=== PATIENT | female | born 1995 | race Caucasian/White ===

== ENCOUNTER 2017-04-13 19:44 | Emergency (ER) | payer OTHER ==
[2017-04-13 19:51] VITALS: RESP 18
[2017-04-13] MEDS ORDERED: ALBUTEROL NEBULIZED 2.5 MG/3 ML INHALATION STA (20:04)
--- NOTE | 2017-04-13 20:09 | ED ---
Chest Pain HPI - General Chief Complaint: Chest Pain Stated Complaint: Chest Pain Time Seen by Provider: 04/13/17 19:47 Source: patient Mode of arrival: EMS - History of Present Illness Initial Comments: This patient is a 22-year-old woman who presents with complaint of 3-4 days now of chest tightness. She indicates it is across the entire chest. She states that she had first noticed it at work. She works at [employer] and again it came on 3-4 days ago. She states that it is constant, mild to moderate, and she has not noted any worsening or relieving factors. She has had a little bit of shortness of breath and she states she is coughing with some light green sputum. Patient denies any anginal equivalent, no diaphoresis, nausea or vomiting, palpitations, lightheadedness or syncope. The patient had gone to medic expess about this was given aspirin and sent here for further evaluation. MD Complaint: chest pain -: days(s) Onset: during rest Pain Location: left chest, right chest Pain Radiation: none Severity: mild Quality: tightness - Related Data Home Medications Medication Instructions Recorded Confirmed [id number] [id number] 2 tab PO BID PRN 04/13/17 04/13/17 [Excedrin] Ibuprofen [Motrin] 800 mg PO DAILY PRN 04/13/17 04/13/17 diphenhydrAMINE HCL [Benadryl] 100 mg PO HS PRN 04/13/17 04/13/17 Previous Rx's Medication Instructions Recorded Albuterol Inhaler [Ventolin Hfa 1 - 2 puff INHALATION Q6HR PRN #1 04/13/17 Inhaler] inhaler Allergies Allergy/AdvReac Type Severity Reaction Status Date / Time No Known Allergies Allergy Verified 04/13/17 20:11 Review of Systems ROS Statement: Those systems with pertinent positive or pertinent negative responses have been documented in the HPI. ROS Other: All systems not noted in ROS Statement are negative. Constitutional: Reports: fever. Denies: chills Respiratory: Reports: as per HPI, cough, dyspnea. Denies: wheezes, hemoptysis Cardiovascular: Reports: as per HPI, chest pain. Denies: palpitations, dyspnea on exertion, orthopnea, edema, syncope Gastrointestinal: Denies: abdominal pain, nausea, vomiting, melena, hematochezia Genitourinary: Denies: dysuria, hematuria Musculoskeletal: Denies: back pain Skin: Denies: rash Neurological: Denies: headache, weakness, numbness EKG Findings - EKG Comments: EKG Findings:: The 12-lead EKG shows anus rhythm with what appear to be relatively frequent reentrant ventricular beats. Rate is 83 bpm. - EKG Results: EKG: interpreted by ALEXXD, sinus rhythm (Rate 83 bpm), normal axis, normal QRS, normal ST/T Past Medical History Past Medical History: No Reported History History of Any Multi-Drug Resistant Organisms: None Reported Past Surgical History: No Surgical Hx Reported Past Psychological History: Anxiety Smoking Status: Current every day smoker Past Alcohol Use History: None Reported Past Drug Use History: None Reported General Exam General appearance: alert, in no apparent distress Head exam: Present: atraumatic, normocephalic Eye exam: Present: normal appearance. Absent: scleral icterus, conjunctival injection ENT exam: Present: normal oropharynx Neck exam: Present: normal inspection, full ROM Respiratory exam: Present: normal lung sounds bilaterally. Absent: respiratory distress, wheezes, rales, rhonchi, stridor Cardiovascular Exam: Present: regular rate, normal rhythm, normal heart sounds. Absent: systolic murmur, diastolic murmur, rubs, gallop GI/Abdominal exam: Present: soft, normal bowel sounds. Absent: distended, tenderness, guarding, rebound, mass Extremities exam: Present: normal inspection, normal capillary refill. Absent: pedal edema, calf tenderness Back exam: Present: normal inspection. Absent: CVA tenderness (R), CVA tenderness (L) Neurological exam: Present: alert Psychiatric exam: Present: anxious Skin exam: Present: warm, dry, intact, normal color. Absent: rash Course Vital Signs 04/13/17 04/13/17 04/13/17 19:45 20:59 21:07 Temperature 99.0 F Pulse Rate 43 L 90 90 Respiratory 18 Rate Blood Pressure 123/67 O2 Sat by Pulse 99 Oximetry Disposition Clinical Impression: Chest pain, Dehydration Disposition: HOME SELF-CARE Condition: Good Instructions: Chest Pain (ED) Prescriptions: Albuterol Inhaler [Ventolin Hfa Inhaler] 1 - 2 puff INHALATION Q6HR PRN #1 inhaler PRN Reason: Wheezing Referrals: None,Stated [Primary Care Provider] - 1-2 days Reggie Traylor MD [STAFF PHYSICIAN] - 1-2 days
[2017-04-13 20:15] LABS: Basophils # (A) 0.1 k/uL (0-0.2); Basophils % (A) 1 %; CH 32.4; CHCM 35.1; Eosinophils # (A) 0.2 k/uL (0-0.7); Eosinophils % (A) 3 %; HCT 41.9 % (34.0-46.0); HDW 2.42; HGB 14.7 gm/dL (11.4-16.0); Luc # (Auto) 0.16; Luc % (Auto) 2; Lymphocytes # (A) 2.1 k/uL (1.0-4.8); Lymphocytes % (A) 24 %; MCH 32.3 pg (25.0-35.0); MCV 92.4 fL (80.0-100.0); Mean Platelet Volume 8.4; Monocytes # (A) 0.5 k/uL (0-1.0); Monocytes % (A) 5 %; Neutrophils # (A) 5.9 k/uL (1.3-7.7); Neutrophils % (A) 66 %; RBC 4.54 m/uL (3.80-5.40); RDW 12.2 % (11.5-15.5); WBC 8.9 k/uL (3.8-10.6)
[2017-04-13 20:24] LABS: ALT 21 U/L (9-52); AST 16 U/L (14-36); Alkaline Phosphatase 77 U/L (38-126); Anion Gap 9 mmol/L; Blood Urea Nitrogen 22 mg/dL (7-17); Carbon Dioxide 24 mmol/L (22-30); Chloride 105 mmol/L (98-107); Glucose 92 mg/dL (74-99); Non-African American GFR(MDRD) >60 (>60 ml/min/1.73 sqM); Potassium 4.3 mmol/L (3.5-5.1); Sodium 138 mmol/L (137-145); Total Bilirubin 0.7 mg/dL (0.2-1.3); Total Protein 7.6 g/dL (6.3-8.2)
[2017-04-13 20:33] LABS: INR 1.1 (<1.1); Partial Thromboplastin Time 25.1 sec (22.0-30.0); Prothrombin Time 10.7 sec (9.0-12.0)
--- NOTE | 2017-04-13 20:42 | XR ---
EXAMINATION TYPE: XR chest 2V DATE OF EXAM: 04/13/2017 8:37 PM COMPARISON: NONE HISTORY: Chest pain TECHNIQUE: Frontal and lateral views of the chest are obtained. FINDINGS: Heart and mediastinum are normal. Lungs are clear. Diaphragm is normal. Bony thorax is int act. There are chest leads. IMPRESSION: Normal chest.
[2017-04-13] MEDS ORDERED: KETOROLAC 30 MG/ML 1 ML VIAL IVP STA (21:19)
[2017-04-13 21:50] LABS: Appearance,Urine Cloudy (Clear); Bilirubin,Urine Negative (Negative); Glucose,Urine (UA) Negative (Negative); Ketones,Urine Negative (Negative); Leukocyte Esterase,Urine Large (Negative); Nitrite,Urine Negative (Negative); Particle Count 18684; Protein,Urine Trace (Negative); Specific Gravity,Urine 1.017 (1.001-1.035); Squamous Epithelial Cell,Urine 19 /hpf (0-4); UA Billing (MACRO vs. MICRO) MICRO; Urobilinogen,Urine <2.0 mg/dL (<2.0); WBC,Urine 11 /hpf (0-5)
[2017-04-13] MEDS ORDERED: SODIUM CHLORIDE 0.9% 1,000 ML IV ONE (22:08)
[2017-04-13 22:56] VITALS: BP 157/96; PULSE 78; TEMP 98.8
== END 2017-04-13 22:53 | disposition home or self-care (01) ==
LOC: EC 19:44
DX: R07.89 Other chest pain (principal); E86.0 Dehydration; R06.02 Shortness of breath; R05 Cough; F17.200 Nicotine dependence, unspecified, uncomplicated
CPT/HCPCS: 36415; 94640; 93005; 85379; 80053; 83735; 84484; 85025; 85610; 85730; 81001; 81025; 71020; 99285; 96374; 96361; J1885

== ENCOUNTER → 2018-01-11 | Outpatient (CLI) | payer OTHER ==
[2018-01-11 18:32] LABS: HGB 12.5 gm/dL (11.4-16.0); MCHC 32.8 g/dL (31.0-37.0); MCV 94.4 fL (80.0-100.0); Mean Platelet Volume 7.5; Platelet Count 299 k/uL (150-450); RBC 4.02 m/uL (3.80-5.40); RDW 11.2 % (11.5-15.5); WBC 10.8 k/uL (3.8-10.6)
[2018-01-11 18:49] LABS: Glucose 51 mg/dL (74-99)
--- NOTE | 2018-01-12 21:05 | US ---
EXAMINATION TYPE: US OB <= 14 wk fetus DATE OF EXAM: 01/11/2018 COMPARISON: NONE CLINICAL HISTORY: Z36 confirm dates. Confirm dates EXAM PERFORMED: Transabdominal (TA) EXAM MEASUREMENTS: GESTATIONAL AGE / DATING Physician Established: Not yet established Dates by LMP: (6 weeks/1 days) EDC: 09/05/18 Dates by First Scan: No previous this is first scan Dates by Current Scan for: (12 weeks/0 days) EDC: 07/26/18 MATERNAL ANATOMY Uterus: 10.6 x 6.3 x 8.8cm Right Ovary: 2.0 x 0.8 x 1.3cm Left Ovary: 3.2 x 1.3 x 1.6cm Post CDS / Adnexa: appears wnl, large amount of peristalsing bowel left adnexa Presence of free fluid: no Presence of corpus luteal cyst: yes, hypoechoic area right ovary = 1.4 x 1.4 x 1.4cm GESTATION / SURVEY CRL: 5.5cm (12 weeks/0 days) Yolk Sac (normal less than 6mm): not seen Heart Rate: 160 bpm Rhythm: Normal IUP: Viable IUP Nuchal Translucency 10-14wks (normal less than 3mm): 1.7mm Date of LMP: unknown - possibly 11/29/17 Beta HcG (if available): Not available at this time Single live intrauterine gestation is seen in the gestational sac and pole is identified. Yolk sac is not clearly present. No free fluid is seen in pelvic cul-de-sac. Both ovaries are identified. Within the right ovary there is a peripheral 1.4 cm hypoechoic oval lesi on felt to reflect corpus luteal cyst. No suspicious extra ovarian adnexal masses are identified. IMPRESSION: Single live intrauterine gestation is confirmed, mean crown-rump length is 5.5 cm corresponding to 12 weeks 0 day old fetus.
[2018-01-15 06:01] LABS: Toxoplasma Antibody (IgG) <3.0 IU/mL (<7.2); Toxoplasma Antibody (IgM) 3.2 AU/mL (<8.0)
== END | disposition home or self-care (01) ==
LOC: RADUSMAIN 17:33
PROVIDERS: ATTEND Obstetrics & Gynecology
DX: Z36.89 Encounter for other specified antenatal screening (principal); Z3A.12 12 weeks gestation of pregnancy
CPT/HCPCS: 76801; 76813; 82565; 82947; 85027; 86592; 86762; 86777; 86778; 86850; 86900; 86901; 87340

== ENCOUNTER 2018-07-28 04:05 | Inpatient (IN) | payer OTHER ==
[2018-07-28] MEDS ORDERED: LIDOCAINE 1% (PF) 10 MG/ML (30 ML SDV) SQ PRN (04:23)
[2018-07-28] MEDS ORDERED: TERBUTALINE 1 MG/ML VIAL SQ PRN (04:23)
[2018-07-28] MEDS ORDERED: OXYTOCIN 10 UNIT/ML 1 ML VIAL IM PRN (04:23)
[2018-07-28] MEDS ORDERED: METHYLERGONOVINE 0.2 MG/ML 1 ML AMP IM PRN (04:23)
[2018-07-28] MEDS ORDERED: CARBOPROST TROMETHAMINE 250 MCG/ML 1 ML AMP IM PRN (04:23)
[2018-07-28] MEDS: LACTATED RINGERS 1,000 ML IV SCH ×4 (04:44→07:11)
[2018-07-28 05:09] LABS: Basophils # (A) 0.1 k/uL (0-0.2); Basophils % (A) 0 %; Eosinophils # (A) 0.1 k/uL (0-0.7); Eosinophils % (A) 1 %; HCT 37.3 % (34.0-46.0); HGB 12.8 gm/dL (11.4-16.0); Lymphocytes % (A) 27 %; MCH 31.8 pg (25.0-35.0); MCHC 34.2 g/dL (31.0-37.0); MCV 92.8 fL (80.0-100.0); Mean Platelet Volume 8.2; Monocytes # (A) 0.7 k/uL (0-1.0); Monocytes % (A) 6 %; Neutrophils # (A) 6.8 k/uL (1.3-7.7); Neutrophils % (A) 62 %; Platelet Count 270 k/uL (150-450); RBC 4.01 m/uL (3.80-5.40); RDW 12.6 % (11.5-15.5); WBC 11.1 k/uL (3.8-10.6)
--- NOTE | 2018-07-28 05:14 | P.HPOB ---
History of Present Illness H&P Date: 07/28/18 Chief Complaint: Contractions This patient is a 23-year-old with a 2 para 1 female estimated date of confinement 07/26/2018 estimated gestational age 40-2/7 weeks who presents to labor and delivery with complaints of painful contractions. Patient was seen by Dr. Ugalde in the office was 1-2 cm dilated is now 2-3 cm dilated in active labor. care is complicated by tobacco use, otherwise appears uncomplicated. Review of Systems Gastrointestinal: Reports heartburn Genitourinary: Reports Menstruation: Reports amenorrhea Past Medical History Past Medical History: No Reported History History of Any Multi-Drug Resistant Organisms: None Reported Past Surgical History: No Surgical Hx Reported Past Anesthesia/Blood Transfusion Reactions: No Reported Reaction Past Psychological History: Anxiety Smoking Status: Current every day smoker Past Alcohol Use History: None Reported Past Drug Use History: None Reported - Past Family History Mother Family Medical History: No Reported History Medications and Allergies Home Medications Medication Instructions Recorded Confirmed Type Pnv,Calcium 72/Iron/Folic Acid 1 each PO DAILY 07/28/18 07/28/18 History [ Plus Tablet] Allergies Allergy/AdvReac Type Severity Reaction Status Date / Time No Known Allergies Allergy Verified 07/28/18 04:10 Exam Vital Signs Temp Pulse Resp BP 07/28/18 04:26 97.8 F 102 H 18 118/69 07/28/18 04:15 97.8 F 102 H 18 118/69 Intake and Output 07/27/18 07/27/18 07/28/18 14:59 22:59 06:59 Other: # Voids 1 Weight 61.235 kg - OBG Physical Exam Abdomen: bowel sounds normal, no diffuse tenderness, no bruit present, no guarding noted, no hepatomegaly, no splenomegaly, no mass Vulva: both: normal Vagina: normal moisture, no discharge Cervix: no lesion (Cervix is 2-3 cm dilated approximately 50% effaced. Artificial rupture membranes shows moderate meconium-stained fluid), no discharge Uterus: enlarged Results blood work shows she is oh positive, rubella immune, hepatitis B is negative, group B strep was negative. Ultrasound has shown small for gestational age. Assessment and Plan Assessment: This is a 23-year-old 2 para 1 female 40-2/7 weeks gestation in early active labor with moderate meconium-stained fluid. Plan is anticipate vaginal delivery. We will alert the nurse appian developer as to the meconium-stained fluid. heart tones are reactive at this time. (1) Post-dates Current Visit: Yes Status: Acute Code(s): O48.0 - POST-TERM SNOMED Code(s): 47960436 (2) Meconium in amniotic fluid Current Visit: Yes Status: Acute Code(s): P96.83 - MECONIUM STAINING SNOMED Code(s): 757408502
[2018-07-28] MEDS ORDERED: ROPIVACAINE 100 MG, fentaNYL (PF) 200 MCG in SODIUM CHLORIDE 0.9% 76 ML EPIDURAL ONE (06:29)
[2018-07-28] MEDS ORDERED: OXYTOCIN 20 UNITS/1000 ML NS 1,000 ML IV SCH ×2 (08:30→10:30)
[2018-07-28] MEDS ORDERED: ZOLPIDEM 5 MG TAB PO PRN (10:25)
[2018-07-28] MEDS ORDERED: SIMETHICONE 80 MG CHEWABLE PO PRN (10:25)
[2018-07-28] MEDS ORDERED: BENZOCAINE/MENTHOL SPRAY 1 GM/SPRAY AEROSOL TOPICAL PRN (10:25)
[2018-07-28] MEDS ORDERED: HYDROCORTISONE 2.5% RECTAL CREAM 30 GM TUBE RECTAL PRN (10:25)
[2018-07-28] MEDS ORDERED: diphenhydrAMINE 50 MG/ML 1 ML VIAL IVP PRN (10:25)
[2018-07-28] MEDS ORDERED: ACETAMINOPHEN TAB 325 MG TAB PO PRN (10:25)
[2018-07-28] MEDS ORDERED: BISACODYL 10 MG SUPP RECTAL PRN (10:25)
[2018-07-28] MEDS ORDERED: WITCH HAZEL 1 EACH MED..PAD TOPICAL PRN (10:25)
[2018-07-28] MEDS ORDERED: LANOLIN CREAM 5 GM TUBE TOPICAL PRN (10:25)
[2018-07-28] MEDS ORDERED: diphenhydrAMINE 25 MG CAP PO PRN (10:25)
--- NOTE | 2018-07-28 10:29 | P.PROBDLV ---
Vaginal Delivery Note - . Vaginal Delivery Note: Normal vaginal delivery viable male infant Apgars 8 and 9 at 1013 hrs. Please see dictated H&P for intimate details of this patient's admission. Brief summary this is a 23-year-old 2 para 1 female 40-2/7 weeks gestation admitted to labor and delivery with complaints of regular painful contractions. On admission patient is 2-3 cm dilated and has artificial rupture membranes for moderate meconium-stained fluid. heart tones are reactive. Patient does get an epidural for pain control. Patient does stay at 4 cm for an hour to and therefore does have some Pitocin augmentation of labor. Labor thereafter progresses quickly patient gets to complete. She pushes approximately 3 times pushes the head over the intact perineum. Pediatricians are present for delivery. There is a very loose nuchal cord and patient has spontaneous delivery the anterior and posterior shoulder and rest this 's body. This has spontaneous respiration and good cry and grossly appears normal. Apgars are 8 and 9 delivery time is 1013 hrs. Infant is late on the mother's abdomen. After the cord is done pulsating the umbilical cord is doubly clamped and cut and appears to be trivascular. The placenta is then spontaneously delivered intact. Of note is slight meconium- stained. Inspection of perineum shows a first-degree vaginal laceration the right side which is only about 2 cm but is reapproximated with 3-0 Vicryl usual fashion. There are no perineal lacerations. and mother are stable delivery room. There are no complications. All counts are correct 3.
[2018-07-28 11:46] VITALS: RESP 16
[2018-07-28] MEDS: IBUPROFEN 600 MG TAB PO PRN ×2 (12:44→19:20)
[2018-07-28] MEDS: SENNOSIDES-DOCUSATE SODIUM 1 EACH TAB PO SCH (19:19)
[2018-07-29] MEDS: IBUPROFEN 600 MG TAB PO PRN ×2 (01:58→10:15)
--- NOTE | 2018-07-29 06:19 | P.MSEPDOC ---
Presenting Problems - Arrival Data Date of Arrival on Unit: 07/28/18 Time of Arrival on Unit: 04:22 Mode of Transport: Wheelchair - Complaint OB-Reason for Admission/Chief Complaint: Possible Onset of Labor Comment: Contractions started at approximately 0100 Medical History - Information : 2 Para: 1 Term: 1 : 0 Abortions: Spontaneous or Elective: 0 Number of Living Children: 1 - Gestational Age Gestational Age by CIPRIANO (wks/days): 40 Weeks and 2 Days - History Complications: Smoker Review of Systems - Review of Systems Constitutional: No problems Breast: No problems ENT: No problems Cardiovascular: No problems Respiratory: No problems Gastrointestinal: No problems Genitourinary: No problems Musculoskeletal: No problems Neurological: No problems Skin: No problems Vital Signs - Temperature Temperature: 97.9 F Temperature Source: Oral - Pulse Right Pulse Rate: 67 Pulse Assessment Method: Automatic Cuff - Respirations Respiratory Rate: 16 Oxygen Delivery Method: Room Air - Blood Pressure Right Arm Blood Pressure: 141/77 Blood Pressure Mean: 98 Blood Pressure Source: Automatic Cuff Medical Screen Scoring (Pre) - Cervical Exam Dilation: 1-3 cm = 1 Effacement: More than 50% = 2 Membranes: Intact - Uterine Contractions Frequency: > or = 36 weeks =2 Duration: > 40 seconds = 2 Intensity: N/A - Maternal Vital Signs Maternal Temperature: N/A Maternal Blood Pressure: N/A Signs of Preeclampsia: N/A Maternal Respirations: N/A - Pain Assessment Pain Location and Character: Abdomen Pain Scale Used: Numeric (1 - 10) Pain Intensity: 10 - Maternal Trauma Maternal Trauma: N/A - Assessment Baseline FHR: 125 Heart Rate - NICHD Category: Category I (Normal) = 0 NST: Reactive Position: N/A Station: N/A - Total Score Total Score (Pre): 7 - Level of Risk Level of Risk: Medium (6-9) Physician Notification (Pre) - Physician Notified Physician Notified Date: 07/28/18 Physician Notified Time: 04:22 Physician/Practitioner Notifed:: Dr. Sinclair New Order Received: Yes - Notification Comment Comment: Admit patient for labor, patient may have an epidural if and when needed. Disposition - Disposition OB Disposition: Admit, LDRP Suite Transferred to:: Suite 3 I agree with the RN Medical Screening Exam: Yes Risk & Benefit of care provided described in d/c instruction: Yes Diagnosis: ENCOUNTER FOR FULL-TERM UNCOMPLICATED DELIVERY
[2018-07-29 08:16] VITALS: BP 122/63; PULSE 78; TEMP 98.6
--- NOTE | 2018-07-29 08:41 | P.DS ---
Providers Date of admission: 07/28/18 04:21 Expected date of discharge: 07/29/18 Attending physician: Joceline Ugalde Primary care physician: Stated None Hospital Course: This is a 23-year-old female 2 para 1 at 40-2/7 weeks who presented with active labor. She delivered vaginally a viable male infant on 07/28/2018 with scores of 8 at 1 minute and 9 at 5 minutes and weight of 6 lbs. 0 oz. Please see dictated delivery note for more details. Her course has been uncomplicated. She is bottle feeding. Lochia is decreasing. Pain is fairly well controlled with ibuprofen. Vital signs are stable. Abdomen is soft with fundus firm and nontender. Extremities show negative Homans. Impression is status post vaginal delivery day #1. Plan is to discharge home today. Routine instructions are given. She is will be given a prescription for ibuprofen. She is advised to follow up in the office in 6 weeks for a check. She is advised to call the office if she has any further questions or concerns prior to her appointment time. Procedures: Spontaneous vaginal delivery of a viable male on 07/28/2018 Patient Condition at Discharge: Stable Plan - Discharge Summary New Discharge Prescriptions: New Ibuprofen [Motrin] 600 mg PO Q6HR PRN #60 tab PRN Reason: Mild Pain Or Fever >= 100.5 Continue Pnv,Calcium 72/Iron/Folic Acid [ Plus Tablet] 1 each PO DAILY Discharge Medication List Pnv,Calcium 72/Iron/Folic Acid [ Plus Tablet] 1 each PO DAILY 07/28/18 [ History] Ibuprofen [Motrin] 600 mg PO Q6HR PRN #60 tab 07/29/18 [Rx] Follow up Appointment(s)/Referral(s): Joceline Ugalde DO [Doctor of Osteopathic Medicine] - 6 Weeks Activity/Diet/Wound Care/Special Instructions: Instructions 1. Do not begin any exercise program for 3 weeks. 2. Do not resume sexual relations for 3 weeks or longer if uncomfortable. 3. You may take tub baths or showers at any time. 4. You may use tampons if desired after 3 weeks. 5. Keep the area of episiotomy (stitches) clean and dry. 6. If you are not nursing, wear a good fitting, supportive bra during the day and limit fluid intake for at least 1 week to prevent breast engorgement. 7. Call the office, [phone], within the next week to make appointment for your 6 week checkup if it has not already been made. 8. Report any of the following occurrences to the doctor promptly: a. Heavy, excessive bleeding b. Chills, fever c. Burning or frequency of urination d. Pain or redness and breasts if nursing e. Increasing pain or swelling in episiotomy (stitches). In addition to the above instructions, the following additional should be followed: 1. No heavy lifting or straining (exercising) until after 6 week checkup. 2. Keep abdominal incision clean and dry: You may wear a dressing if more comfortable. 3. Make office appointment for 10 days after going home or as instructed by her doctor. Discharge Disposition: HOME SELF-CARE
[2018-07-29] MEDS: SENNOSIDES-DOCUSATE SODIUM 1 EACH TAB PO SCH (09:39)
== END 2018-07-29 13:06 | disposition home or self-care (01) | DRG 775 ==
LOC: FBPOP 04:05 → 4FBP 04:21
PROVIDERS: ADMIT Obstetrics & Gynecology; ATTEND Obstetrics & Gynecology
PROC: 10E0XZZ Delivery of Products of Conception, External Approach (ICD-10-PCS; principal; 2018-07-28)
PROC: 0HQ9XZZ Repair Perineum Skin, External Approach (ICD-10-PCS; 2018-07-28)
PROC: 00HU33Z Insertion of Infusion Device into Spinal Canal, Percutaneous Approach (ICD-10-PCS; 2018-07-28)
PROC: 3E0R3BZ Introduction of Anesthetic Agent into Spinal Canal, Percutaneous Approach (ICD-10-PCS; 2018-07-28)
DX: O48.0 Post-term pregnancy (principal); Z37.0 Single live birth; O77.0 Labor and delivery complicated by meconium in amniotic fluid; O69.81X0 Labor and delivery complicated by cord around neck, without compression, not applicable or unspecified; O99.334 Smoking (tobacco) complicating childbirth; F17.200 Nicotine dependence, unspecified, uncomplicated; O99.344 Other mental disorders complicating childbirth; F41.9 Anxiety disorder, unspecified; O70.0 First degree perineal laceration during delivery; Z3A.40 40 weeks gestation of pregnancy
CPT/HCPCS: 59025; 84112; 85025; 88307; 99213

== ENCOUNTER 2022-04-10 22:29 | Inpatient (IN) | payer OTHER ==
[2022-04-10] MEDS ORDERED: CARBOPROST TROMETHAMINE 250 MCG/ML 1 ML AMP IM PRN (22:56)
[2022-04-10] MEDS ORDERED: OXYTOCIN 10 UNIT/ML 1 ML VIAL IM PRN (22:56)
[2022-04-10] MEDS ORDERED: TERBUTALINE 1 MG/ML VIAL SQ PRN (22:56)
[2022-04-10] MEDS ORDERED: LIDOCAINE 1% (PF) 10 MG/ML (30 ML SDV) SQ PRN (22:56)
[2022-04-10] MEDS ORDERED: METHYLERGONOVINE 0.2 MG/ML 1 ML AMP IM PRN (22:56)
[2022-04-10] MEDS: LACTATED RINGERS 1,000 ML IV SCH (23:00)
[2022-04-10] MEDS ORDERED: OXYTOCIN 30 UNITS/500 ML NS 30 UNIT in SALINE 1 500ML.BAG IV SCH (23:00)
[2022-04-10 23:27] LABS: Basophils % (A) 0 %; Eosinophils # (A) 0.1 k/uL (0-0.7); Eosinophils % (A) 0 %; HCT 37.1 % (34.0-46.0); HGB 12.8 gm/dL (11.4-16.0); Lymphocytes # (A) 1.9 k/uL (1.0-4.8); Lymphocytes % (A) 14 %; MCH 32.7 pg (25.0-35.0); MCHC 34.5 g/dL (31.0-37.0); MCV 94.6 fL (80.0-100.0); Monocytes # (A) 0.6 k/uL (0-1.0); Monocytes % (A) 4 %; Neutrophils % (A) 79 %; Platelet Count 241 k/uL (150-450); RBC 3.92 m/uL (3.80-5.40); WBC 12.8 k/uL (3.8-10.6)
[2022-04-11] MEDS: FAMOTIDINE 20 MG/2 ML VIAL IV SCH ×2 (00:29→08:33)
[2022-04-11] MEDS: BUTORPHANOL 1 MG/ML 1 ML VIAL IV PRN ×2 (01:25→07:59)
[2022-04-11] MEDS: LACTATED RINGERS 1,000 ML IV SCH ×3 (01:26→12:08)
--- NOTE | 2022-04-11 06:48 | P.HPOB ---
History of Present Illness H&P Date: 04/11/22 Chief Complaint: contractions 27 year old presents at 40 weeks 2 days complaining of contractions. Her cervix was 1/60/-2 and she was mary every few minutes. heart tones were 130 with moderate variability and reactive. She did have a decelration in triage for 5 minutes, resolved with position changes. After this deceleration, with the contractions and her being after 40 weeks, I admitted this patient for delivery. Review of Systems All systems: negative Constitutional: Denies chills, Denies fever Eyes: denies blurred vision, denies pain Ears, nose, mouth and throat: Denies headache, Denies sore throat Cardiovascular: Denies chest pain, Denies shortness of breath Respiratory: Denies cough Gastrointestinal: Denies abdominal pain, Denies diarrhea, Denies nausea, Denies vomiting Genitourinary: Denies dysuria, Denies hematuria Musculoskeletal: Denies myalgias Integumentary: Denies pruritus, Denies rash Neurological: Denies numbness, Denies weakness Psychiatric: Denies anxiety, Denies depression Endocrine: Denies fatigue, Denies weight change Past Medical History Past Medical History: No Reported History History of Any Multi-Drug Resistant Organisms: None Reported Past Surgical History: No Surgical Hx Reported Past Anesthesia/Blood Transfusion Reactions: No Reported Reaction Past Psychological History: Anxiety, Bipolar, Depression Smoking Status: Current every day smoker Past Alcohol Use History: None Reported Past Drug Use History: Marijuana - Past Family History Mother Family Medical History: No Reported History Medications and Allergies Allergies Allergy/AdvReac Type Severity Reaction Status Date / Time No Known Allergies Allergy Verified 04/10/22 22:30 Exam Osteopathic Statement: *. No significant issues noted on an osteopathic structural exam other than those noted in the History and Physical/Consult. Vital Signs Temp Pulse Resp BP Pulse Ox 04/10/22 23:30 96.8 F L 83 18 133/79 100 Intake and Output 04/10/22 04/10/22 04/11/22 14:59 22:59 06:59 Other: # Voids 4 Weight 61.235 kg 61.235 kg Heart: Regular rate and rhythm Lungs: Clear to auscultation bilaterally Abdomen: Soft, nontender Extremities: Negative Homans sign Results Result Diagrams: 04/10/22 22:55 Abnormal Lab Results - Last 24 Hours (Table) 04/10/22 Range/Units 22:55 WBC 12.8 H (3.8-10.6) k/uL Neutrophils # 10.0 H (1.3-7.7) k/uL Assessment and Plan (1) Normal labor Current Visit: Yes Status: Acute Code(s): O80 - ENCOUNTER FOR FULL-TERM UNCOMPLICATED DELIVERY; Z37.9 - OUTCOME OF DELIVERY, UNSPECIFIED SNOMED Code(s): 30873764 (2) 40 weeks gestation of Current Visit: Yes Status: Acute Code(s): Z3A.40 - 40 WEEKS GESTATION OF SNOMED Code(s): 22317471 (3) Abnormality in heart rate during labor Current Visit: Yes Status: Acute Code(s): QKM6250 - SNOMED Code(s): 761489138 Plan: 1. admit to L&D 2. expectant management with pitocin augmentation if necessary 3. anticipate normal vaginal delivery
[2022-04-11] MEDS ORDERED: SODIUM CHLORIDE 0.9% 100 ML BAG ONE (08:44)
[2022-04-11] MEDS ORDERED: fentaNYL (PF) 50 MCG/ML 5 ML AMP ONE (08:44)
[2022-04-11] MEDS ORDERED: BUPIVACAINE (PF) 0.25% 30 ML VIAL ONE (08:44)
[2022-04-11] MEDS ORDERED: SIMETHICONE 80 MG CHEWABLE PO PRN (14:56)
[2022-04-11] MEDS ORDERED: LANOLIN CREAM 5 GM TUBE TOPICAL PRN (14:56)
[2022-04-11] MEDS ORDERED: diphenhydrAMINE 50 MG/ML 1 ML VIAL IVP PRN ×2 (14:56)
[2022-04-11] MEDS ORDERED: ZOLPIDEM 5 MG TAB PO PRN (14:56)
[2022-04-11] MEDS ORDERED: OXYTOCIN 30 UNITS/500 ML NS 30 UNIT in SALINE 1 500ML.BAG IV SCH (14:56)
[2022-04-11] MEDS ORDERED: HYDROCORTISONE 2.5% RECTAL CREAM 30 GM TUBE RECTAL PRN (14:56)
[2022-04-11] MEDS ORDERED: diphenhydrAMINE 25 MG CAP PO PRN (14:56)
[2022-04-11] MEDS ORDERED: BENZOCAINE/MENTHOL SPRAY 1 GM/SPRAY AEROSOL TOPICAL PRN (14:56)
[2022-04-11] MEDS ORDERED: diphenhydrAMINE 50 MG CAP PO PRN (14:56)
[2022-04-11] MEDS: IBUPROFEN 600 MG TAB PO PRN ×2 (15:14→22:35)
--- NOTE | 2022-04-11 18:26 | P.PROBDLV ---
Vaginal Delivery Note - . Vaginal Delivery Note: The patient breast to complete dilation after oxytocin augmentation of labor and artificial rupture of membranes with clear fluid noted. She did receive epidural anesthesia. Once reaching complete, she began pushing. Infant's head came to a crown. With one further push, the infant's head delivered across the perineum followed by the anterior shoulder. Nuchal cord times one was reduced around the 's head. The remainder the infant easily delivered after that. Nose and mouth were bulb suctioned after delivery. Infant was placed on mother's abdomen. Cord was clamped and cut. Infant was taken to warmer for evaluation. A viable female is noted with scores of 9 at 1 minute and 9 at 5 minutes and infant weight of 6 lbs. 5 oz. Placenta delivered shortly thereafter, intact, with a three-vessel cord. Uterus contracted well after oxytocin was given and uterine massage was carried out. Inspection of the perineum revealed a very minor perineal abrasion but no active bleeding noted. Estimated blood loss is approximately 100 mL's. Both mother and are in stable condition.
[2022-04-11] MEDS: ACETAMINOPHEN TAB 325 MG TAB PO PRN (18:31)
[2022-04-11] MEDS: SENNOSIDES-DOCUSATE SODIUM 1 EACH TAB PO SCH (22:34)
[2022-04-12] MEDS: ACETAMINOPHEN TAB 325 MG TAB PO PRN ×2 (02:46→08:49)
[2022-04-12] MEDS: IBUPROFEN 600 MG TAB PO PRN ×2 (06:42→13:06)
[2022-04-12 06:50] LABS: Basophils % (A) 0 %; Eosinophils # (A) 0.1 k/uL (0-0.7); Eosinophils % (A) 1 %; HCT 34.3 % (34.0-46.0); HGB 11.2 gm/dL (11.4-16.0); Lymphocytes # (A) 1.8 k/uL (1.0-4.8); Lymphocytes % (A) 15 %; MCH 31.4 pg (25.0-35.0); MCHC 32.7 g/dL (31.0-37.0); MCV 95.9 fL (80.0-100.0); Mean Platelet Volume 8.8; Monocytes # (A) 0.7 k/uL (0-1.0); Monocytes % (A) 6 %; Neutrophils # (A) 9.3 k/uL (1.3-7.7); Neutrophils % (A) 76 %; Platelet Count 219 k/uL (150-450); RBC 3.58 m/uL (3.80-5.40); RDW 13.1 % (11.5-15.5); WBC 12.2 k/uL (3.8-10.6)
--- NOTE | 2022-04-12 07:40 | P.MSEPDOC ---
Presenting Problems - Arrival Data Date of Arrival on Unit: 04/10/22 Time of Arrival on Unit: 22:29 Mode of Transport: Wheelchair - Complaint OB-Reason for Admission/Chief Complaint: Possible Onset of Labor Medical History - Information : 3 Para: 2 Term: 2 : 0 Abortions: Spontaneous or Elective: 0 Number of Living Children: 2 - Gestational Age Gestational Age by CIPRIANO (wks/days): 40 Weeks and 2 Days - History Complications: Smoker Review of Systems - Review of Systems Constitutional: No problems Breast: No problems ENT: No problems Cardiovascular: No problems Respiratory: No problems Gastrointestinal: No problems Genitourinary: No problems Musculoskeletal: No problems Neurological: No problems Skin: No problems Vital Signs - Temperature Temperature: 98.2 F Temperature Source: Oral - Pulse Right Pulse Oximetery Pulse Rate: 86 Pulse Assessment Method: Pulse Oximetry - Respirations Respiratory Rate: 16 Oxygen Delivery Method: Room Air O2 Sat by Pulse Oximetry: 97 - Blood Pressure Right Arm Blood Pressure: 134/64 Blood Pressure Mean: 87 Blood Pressure Source: Automatic Cuff Medical Screen Scoring - Cervical Exam Dilation (cm): 1 Effacement (%): 60 Station: -3 Membranes: Intact - Uterine Contractions Frequency From (mins): 1 Frequency To (mins): 4 Duration From (seconds): 50 Duration To (seconds): 120 Intensity: Mild Resting: Soft to palpation - Assessment - Baby A Baseline FHR: 145 Heart Rate - NICHD Category: Category II (Indeterminate) NST: Reactive Physician Notification - Physician Notified Physician Notified Date: 04/10/22 Physician Notified Time: 23:03 Physician: Kandi Watkins New Order Received: Yes - Notification Comment Comment: Dr. Watkins notified of pt's arrival to triage, report given including FHT's. Resuscitative measures discussed. POC discussed. Pt to be admitted for labor, management as expected unless otherwise needed. Maternal Triage Index - Maternal Triage Index Presenting for scheduled procedure w/no complaint: No - Stat/Priority 1 Stat Priority 1: No - Urgent/Priority 2 Urgent Priority 2: No - Prompt/Priority 3 Prompt Priority 3: No - Non-Urgent/Priority 4 Non-Urgent Priority 4: Yes Criteria Met for Priority 4: Pt is a with CIPRIANO 04/08/22 here at 40.2 weeks of gestation with c/o UC's x4 hours. Pt reports UC's started around 6pm and got increasing painful. Disposition - Disposition OB Disposition: Admit Transferred to:: BS 16 Discharge Date: 04/11/22 Discharge Time: 23:03 I agree with the RN Medical Screening Exam: Yes Case reviewed; plan agreed upon as documented in EMR&OBIX.: Yes Diagnosis: ENCOUNTER FOR FULL-TERM UNCOMPLICATED DELIVERY
[2022-04-12] MEDS: SENNOSIDES-DOCUSATE SODIUM 1 EACH TAB PO SCH (08:49)
--- NOTE | 2022-04-12 08:57 | P.DS ---
Providers Date of admission: 04/10/22 22:52 Expected date of discharge: 04/12/22 Attending physician: Joceline Ugalde Primary care physician: Stated None Hospital Course: This is a 27-year-old female 3 para 2 with an estimated gestational age of 40-3/7 weeks who presented to labor and delivery with complaints of contractions. She is observed in triage and found to have a 5 minute deceleration. She was admitted and observed and then underwent oxytocin augmentation of labor the next morning. She delivered vaginally a viable female infant with scores of 9 at 1 minute and 9 at 5 minutes and weight of 6 lbs. 5 oz. Nuchal cord times one was noted. course has been essentially uncomplicated. She is breast-feeding. Lochia is decreasing. Pain is well-controlled other than complaints of back pain. Vital signs are stable. Abdomen is soft with fundus firm and nontender. Extremities show negative Homans. Impression is status post vaginal delivery day #1. Plan is to discharge home later today. Routine instructions are given. She will be given a prescription for ibuprofen and a breast pump. She is advised follow-up in the office in 6 weeks for check. She is advised to call the office if she has any further questions or concerns prior to her appointment time. Procedures: Oxytocin augmentation of labor Spontaneous vaginal delivery of a viable female on 04/11/2022 Patient Condition at Discharge: Stable Plan - Discharge Summary New Discharge Prescriptions: New Ibuprofen [Motrin] 600 mg PO Q6HR PRN #60 tab PRN Reason: Mild Pain (Scale 1 To 3) Discharge Medication List Ibuprofen [Motrin] 600 mg PO Q6HR PRN #60 tab 04/12/22 [Rx] Follow up Appointment(s)/Referral(s): Joceline Ugalde DO [Doctor of Osteopathic Medicine] - 05/26/22 11:30 am Activity/Diet/Wound Care/Special Instructions: Instructions 1. Do not begin any exercise program for 3 weeks. 2. Do not resume sexual relations for 3 weeks or longer if uncomfortable. 3. You may take tub baths or showers at any time. 4. You may use tampons if desired after 3 weeks. 5. Keep the area of episiotomy (stitches) clean and dry. 6. If you are not nursing, wear a good fitting, supportive bra during the day and limit fluid intake for at least 1 week to prevent breast engorgement. 7. Call the office, [phone], within the next week to make appointment for your 6 week checkup if it has not already been made. 8. Report any of the following occurrences to the doctor promptly: a. Heavy, excessive bleeding b. Chills, fever c. Burning or frequency of urination d. Pain or redness and breasts if nursing e. Increasing pain or swelling in episiotomy (stitches). In addition to the above instructions, the following additional should be followed: 1. No heavy lifting or straining (exercising) until after 6 week checkup. 2. Keep abdominal incision clean and dry: You may wear a dressing if more c omfortable. 3. Make office appointment for 10 days after going home or as instructed by her doctor. Discharge Disposition: HOME SELF-CARE
[2022-04-12 09:44] VITALS: RESP 18
[2022-04-12 13:17] VITALS: BP 121/78; PULSE 73; TEMP 98.1
== END 2022-04-12 16:10 | disposition home or self-care (01) | DRG 807 ==
LOC: FBPOP 22:29 → 4FBP 22:52
PROVIDERS: ADMIT Obstetrics & Gynecology; ATTEND Obstetrics & Gynecology
PROC: 10E0XZZ Delivery of Products of Conception, External Approach (ICD-10-PCS; principal; 2022-04-11)
PROC: 10907ZC Drainage of Amniotic Fluid, Therapeutic from Products of Conception, Via Natural or Artificial Opening (ICD-10-PCS; 2022-04-11)
PROC: 3E033VJ Introduction of Other Hormone into Peripheral Vein, Percutaneous Approach (ICD-10-PCS; 2022-04-11)
PROC: 4A0HXCZ Measurement of Products of Conception, Cardiac Rate, External Approach (ICD-10-PCS; 2022-04-11)
DX: O76 Abnormality in fetal heart rate and rhythm complicating labor and delivery (principal); Z37.0 Single live birth; O70.0 First degree perineal laceration during delivery; F17.210 Nicotine dependence, cigarettes, uncomplicated; F31.9 Bipolar disorder, unspecified; F41.9 Anxiety disorder, unspecified; O69.81X0 Labor and delivery complicated by cord around neck, without compression, not applicable or unspecified; O99.334 Smoking (tobacco) complicating childbirth; O99.344 Other mental disorders complicating childbirth; Z3A.40 40 weeks gestation of pregnancy
CPT/HCPCS: 59025; 85025; 86850; 86900; 86901; 99213